=== PATIENT | male | born 1935 | race Caucasian/White ===

== ENCOUNTER 2017-01-29 21:44 | Inpatient (IN) | payer MEDICARE, BC ==
[~2017-01-29] VITALS: Ht 175.3 cm; Wt 99.7 kg
[~2017-01-29 21:44] MED LIST: ACTOS 15MG TAB15 MG PO; ACTOS 45MG45 MG/TAB PO; ASPIRIN 32325 MG/TAB PO; CLEOCIN HC150 MG/CAP PO; CLOPIDOGREL PO; COUMADIN 6MG6 MG/TAB PO; ECOTRIN325 MG PO; FLOMAX 0.40.4 MG/CAP PO; INSULIN 70/3100 U/ML SC; IPRATROPIUM BROM3 M1 IH; LASIX 40MG TABL40 MG PO; LASIX 80MG TABL80 MG PO; LEVAQUIN 5500 MG/TA1 PO; METOPROLOL SUCC25 MG PO; MUCINEX1200 MG PO; NEXIUM40 MG PO; NOVOLIN 70/30 710 ML SC; NOVOLIN R100 U/ML SQ; PRIL40 PO; PRILOSEC 20MG20 MG PO; REGLAN 10MG10 MG/TAB PO; SSKI1 GM/ML PO; TERAZOSIN HCL PO; TOPROL XL 25MG25 MG PO; TOPROL XL25 MG PO; ZITHROMAX 250M250 MG PO; ZYRTEC 10MG10 MG PO
[2017-01-29 22:19] LABS: BASO % 0.3 % (0.0-2.0); EOS % 0.5 % (0-4.0); GRAN # 4.6 (1.4-6.5); GRAN % 70.1 % (42.2-75.2); LYMPH # 1.2 (1.2-3.4); MEAN CELL VOLUME 93 fl (80.0-100.0); MEAN CORPUSCULAR HGB CONC 34 g/dl (33.0-37.0); MEAN PLATELET VOLUME 9.4 fl (7.4-10.4); MONO # 0.7 (0.1-0.6); MONO % 10.9 % (1.7-9.3); PLATELET COUNT 231 K/mm3 (130-400); RED BLOOD COUNT 3.59 M/mm3 (4.20-5.60); REDCELL DISTRIBUTION WIDTH-CV 14.1 % (11.5-14.5); WHITE BLOOD COUNT 6.6 K/mm3 (4.8-10.8)
[2017-01-29 22:34] LABS: ADJUSTED CALCIUM 8.8 mg/dL (8.4-10.2); ALBUMIN 3.7 gm/dL (3.5-5.0); BILIRUBIN,TOTAL 1.1 mg/dL (0.0-1.0); CALCIUM 8.6 mg/dL (8.4-10.2); MAGNESIUM 1.9 mg/dL (1.6-2.3); POTASSIUM 4.3 mmol/L (3.4-5.0); TOTAL PROTEIN 6.7 gm/dL (6.4-8.2)
[2017-01-29 22:36] LABS: HEMATOCRIT 33.3 % (42.0-52.0); HEMOGLOBIN 11.2 g/dl (13.5-18.0); MEAN CORPUSCULAR HEMOGLOBIN 31 pg (27.0-31.0)
[2017-01-29 22:38] LABS: INR 1.8 (0.8-3.0); PROTHROMBIN TIME 20.2 SECONDS (9.7-12.8)
[2017-01-29 22:42] LABS: PARTIAL THROMBOPLASTIN TIME 36.3 SECONDS (26.0-37.0)
[2017-01-29 22:49] LABS: TROPONIN-I 3.58 ng/mL (0.000-0.034)
[2017-01-30] VITALS (998 sets, daily range): BP systolic 102–143; BP diastolic 36–100; PULSE 61–78; TEMP 97.3–98.5; O2SAT 72–100
[2017-01-30] MEDS ORDERED: PREDNISONE10 MG PO (00:25)
[2017-01-30] MEDS ORDERED: ZITHROMAX500 M2 PO (00:25)
[2017-01-30] MEDS ORDERED: GLUCOPHAGE500 MG/TAB PO (08:08)
[2017-01-30 11:18] LABS: BASO % 0.4 % (0.0-2.0); EOS % 0.4 % (0-4.0); GRAN # 2.4 (1.4-6.5); GRAN % 48.5 % (42.2-75.2); LYMPH % 40.4 % (20.0-51.0); MEAN CELL VOLUME 93 fl (80.0-100.0); MEAN CORPUSCULAR HGB CONC 34 g/dl (33.0-37.0); MEAN PLATELET VOLUME 9.5 fl (7.4-10.4); MONO # 0.5 (0.1-0.6); MONO % 9.9 % (1.7-9.3); PLATELET COUNT 215 K/mm3 (130-400); RED BLOOD COUNT 3.48 M/mm3 (4.20-5.60); REDCELL DISTRIBUTION WIDTH-CV 14.2 % (11.5-14.5)
[2017-01-30 11:32] LABS: HEMATOCRIT 32.5 % (42.0-52.0); HEMOGLOBIN 10.9 g/dl (13.5-18.0); MEAN CORPUSCULAR HEMOGLOBIN 31 pg (27.0-31.0)
[2017-01-30 11:33] LABS: INR 1.8 (0.8-3.0)
[2017-01-30 11:36] LABS: ADJUSTED CALCIUM 9.2 mg/dL (8.4-10.2); ALBUMIN 3.4 gm/dL (3.5-5.0); CALCIUM 8.7 mg/dL (8.4-10.2); CREATININE, serum 0.96 mg/dL (0.66-1.25); PARTIAL THROMBOPLASTIN TIME 42.4 SECONDS (26.0-37.0); POTASSIUM 4.3 mmol/L (3.4-5.0); TOTAL PROTEIN 6.3 gm/dL (6.4-8.2)
[2017-01-30 11:56] LABS: TROPONIN-I 1.84 ng/mL (0.000-0.034)
[2017-01-31] VITALS (1018 sets, daily range): BP systolic 103–158; BP diastolic 37–95; PULSE 51–75; TEMP 97.5–98.2; O2SAT 83–100
[2017-01-31 06:16] LABS: ADD PATHOLOGY DIFF REVIEW NO
[2017-01-31 06:18] LABS: MEAN CELL VOLUME 91 fl (80.0-100.0); MEAN CORPUSCULAR HGB CONC 34 g/dl (33.0-37.0); PLATELET COUNT 231 K/mm3 (130-400); WHITE BLOOD COUNT 6.7 K/mm3 (4.8-10.8)
[2017-01-31 06:28] LABS: HEMATOCRIT 31.8 % (42.0-52.0); HEMOGLOBIN 10.7 g/dl (13.5-18.0); MEAN CORPUSCULAR HEMOGLOBIN 31 pg (27.0-31.0)
[2017-01-31 06:29] LABS: CALCIUM 8.6 mg/dL (8.4-10.2); CREATININE, serum 1.17 mg/dL (0.66-1.25); MAGNESIUM 1.9 mg/dL (1.6-2.3); POTASSIUM 3.9 mmol/L (3.4-5.0)
[2017-01-31 06:31] LABS: INR 1.8 (0.8-3.0); PROTHROMBIN TIME 20.5 SECONDS (9.7-12.8)
[2017-01-31 06:43] LABS: TROPONIN-I 1.39 ng/mL (0.000-0.034)
[2017-01-31 07:39] LABS: BAND 5 % (0-10); NEUTROPHILS 80 % (42.0-75.2); TOTAL CELLS COUNTED 100
[2017-01-31 07:45] LABS: PLATELET ESTIMATE NORMAL (NORMAL)
[2017-02-01] VITALS (692 sets, daily range): BP systolic 97–175; BP diastolic 43–102; PULSE 50–80; TEMP 97–98.2; O2SAT 70–100
[2017-02-01 05:51] LABS: INR 1.6 (0.8-3.0); PROTHROMBIN TIME 17.4 SECONDS (9.7-12.8)
[2017-02-01 05:59] LABS: CALCIUM 8.7 mg/dL (8.4-10.2); CREATININE, serum 1.81 mg/dL (0.66-1.25); POTASSIUM 4.6 mmol/L (3.4-5.0)
[2017-02-01 06:08] LABS: PARTIAL THROMBOPLASTIN TIME 103.4 SECONDS (26.0-37.0)
[2017-02-01 06:18] LABS: MEAN CELL VOLUME 91 fl (80.0-100.0); MEAN CORPUSCULAR HGB CONC 34 g/dl (33.0-37.0); MEAN PLATELET VOLUME 9.5 fl (7.4-10.4); PLATELET COUNT 239 K/mm3 (130-400); RED BLOOD COUNT 3.38 M/mm3 (4.20-5.60)
[2017-02-01 06:22] LABS: HEMATOCRIT 30.7 % (42.0-52.0); HEMOGLOBIN 10.3 g/dl (13.5-18.0); MEAN CORPUSCULAR HEMOGLOBIN 30 pg (27.0-31.0)
[2017-02-02] VITALS (710 sets, daily range): BP systolic 71–171; BP diastolic 37–86; PULSE 55–79; TEMP 97.3–98.7; O2SAT 89–100
[2017-02-02 05:08] LABS: GRAN # 7.5 (1.4-6.5); LYMPH # 0.9 (1.2-3.4); LYMPH % 10.1 % (20.0-51.0); MEAN CELL VOLUME 90 fl (80.0-100.0); MEAN CORPUSCULAR HGB CONC 34 g/dl (33.0-37.0); MONO # 0.6 (0.1-0.6); MONO % 6.3 % (1.7-9.3); PLATELET COUNT 186 K/mm3 (130-400); RED BLOOD COUNT 2.91 M/mm3 (4.20-5.60); REDCELL DISTRIBUTION WIDTH-CV 13.9 % (11.5-14.5)
[2017-02-02 05:16] LABS: CALCIUM 7.8 mg/dL (8.4-10.2); CREATININE, serum 2.14 mg/dL (0.66-1.25); POTASSIUM 4.2 mmol/L (3.4-5.0)
[2017-02-02 05:30] LABS: HEMATOCRIT 26.2 % (42.0-52.0); MEAN CORPUSCULAR HEMOGLOBIN 31 pg (27.0-31.0)
[2017-02-02 09:39] LABS: INR 1.8 (0.8-3.0); PROTHROMBIN TIME 19.9 SECONDS (9.7-12.8)
[2017-02-02 15:08] LABS: PH 5 (5-8); SQUAMOUS EPITHELIAL None Seen /hpf; URINE APPEARANCE Cloudy; URINE BACTERIA Many /hpf; URINE BILIRUBIN Negative (NEGATIVE); URINE BLOOD 3+ (NEGATIVE); URINE COLOR Amber; URINE GLUCOSE 1+ (NEGATIVE); URINE KETONE Negative (NEGATIVE); URINE RBC >50 /hpf; URINE UROBILINOGEN Negative (NEGATIVE); URINE WBC >50 /hpf
[2017-02-03 03:14] VITALS: BP 141/57; PULSE 67; TEMP 97.7
[2017-02-03 08:14] LABS: BASO % 0.1 % (0.0-2.0); GRAN # 10.4 (1.4-6.5); GRAN % 88.9 % (42.2-75.2); LYMPH % 8.4 % (20.0-51.0); MEAN CELL VOLUME 90 fl (80.0-100.0); MEAN CORPUSCULAR HGB CONC 35 g/dl (33.0-37.0); MEAN PLATELET VOLUME 9.3 fl (7.4-10.4); MONO # 0.2 (0.1-0.6); MONO % 1.6 % (1.7-9.3); PLATELET COUNT 264 K/mm3 (130-400); RED BLOOD COUNT 3.34 M/mm3 (4.20-5.60); REDCELL DISTRIBUTION WIDTH-CV 14.1 % (11.5-14.5); WHITE BLOOD COUNT 11.7 K/mm3 (4.8-10.8)
[2017-02-03 08:22] LABS: HEMATOCRIT 30.1 % (42.0-52.0); HEMOGLOBIN 10.4 g/dl (13.5-18.0); MEAN CORPUSCULAR HEMOGLOBIN 31 pg (27.0-31.0)
[2017-02-03 08:28] LABS: CALCIUM 8.4 mg/dL (8.4-10.2); POTASSIUM 4.8 mmol/L (3.4-5.0)
[2017-02-03 08:35] VITALS: BP 172/86; PULSE 78; TEMP 97.4
[2017-02-03 08:35] LABS: CREATININE, serum 3.45 mg/dL (0.66-1.25)
[2017-02-03 08:37] LABS: INR 2.3 (0.8-3.0); PROTHROMBIN TIME 25.6 SECONDS (9.7-12.8)
[2017-02-03 11:27] VITALS: BP 158/76; PULSE 74; TEMP 98.3
[2017-02-03 12:00] LABS: RETIC % 1.5 % (0.5-3.52)
[2017-02-03 15:40] VITALS: BP 144/60; PULSE 79
[2017-02-03 20:09] VITALS: BP 162/66; PULSE 76; TEMP 98.6
[2017-02-04] VITALS (7 sets, daily range): BP systolic 122–177; BP diastolic 60–75; PULSE 70–77; TEMP 97.5–98.7
[2017-02-04 08:01] LABS: CALCIUM 8.4 mg/dL (8.4-10.2)
[2017-02-04 08:19] LABS: BASO % 0.2 % (0.0-2.0); GRAN # 11.2 (1.4-6.5); GRAN % 87.2 % (42.2-75.2); LYMPH # 1.1 (1.2-3.4); LYMPH % 8.2 % (20.0-51.0); MEAN CELL VOLUME 89 fl (80.0-100.0); MEAN CORPUSCULAR HGB CONC 35 g/dl (33.0-37.0); MEAN PLATELET VOLUME 9.9 fl (7.4-10.4); MONO # 0.4 (0.1-0.6); PLATELET COUNT 241 K/mm3 (130-400); RED BLOOD COUNT 3.18 M/mm3 (4.20-5.60); REDCELL DISTRIBUTION WIDTH-CV 13.7 % (11.5-14.5); WHITE BLOOD COUNT 12.9 K/mm3 (4.8-10.8)
[2017-02-04 08:30] LABS: CREATININE, serum 4.11 mg/dL (0.66-1.25)
[2017-02-04 08:32] LABS: HEMATOCRIT 28.3 % (42.0-52.0); HEMOGLOBIN 9.9 g/dl (13.5-18.0); MEAN CORPUSCULAR HEMOGLOBIN 31 pg (27.0-31.0)
[2017-02-04 08:47] LABS: PROTHROMBIN TIME 37.6 SECONDS (9.7-12.8)
[2017-02-04 08:56] LABS: INR 3.3 (0.8-3.0)
[2017-02-04 23:16] LABS: INR 2.1 (0.8-3.0)
[2017-02-05 05:50] VITALS: BP 176/65; PULSE 65; TEMP 98.5
[2017-02-05 06:54] LABS: BASO % 0.1 % (0.0-2.0); GRAN # 8.5 (1.4-6.5); GRAN % 88.7 % (42.2-75.2); LYMPH # 0.6 (1.2-3.4); LYMPH % 6.6 % (20.0-51.0); MEAN CELL VOLUME 89 fl (80.0-100.0); MEAN CORPUSCULAR HGB CONC 35 g/dl (33.0-37.0); MEAN PLATELET VOLUME 9.5 fl (7.4-10.4); MONO # 0.3 (0.1-0.6); MONO % 3.1 % (1.7-9.3); PLATELET COUNT 220 K/mm3 (130-400); WHITE BLOOD COUNT 9.6 K/mm3 (4.8-10.8)
[2017-02-05 06:56] LABS: HEMATOCRIT 26.6 % (42.0-52.0); HEMOGLOBIN 9.2 g/dl (13.5-18.0); MEAN CORPUSCULAR HEMOGLOBIN 31 pg (27.0-31.0)
[2017-02-05 07:00] LABS: INR 1.7 (0.8-3.0); PROTHROMBIN TIME 19.4 SECONDS (9.7-12.8)
[2017-02-05 07:07] LABS: POTASSIUM 4.3 mmol/L (3.4-5.0)
[2017-02-05 07:33] LABS: CREATININE, serum 4.59 mg/dL (0.66-1.25)
[2017-02-05 09:40] VITALS: BP 156/51; PULSE 72; TEMP 98.4
[2017-02-05 12:36] VITALS: BP 130/47; PULSE 68; TEMP 97.6
[2017-02-05 16:55] VITALS: BP 177/75; PULSE 71; TEMP 98.5
[2017-02-05 19:27] VITALS: BP 172/95; PULSE 69; TEMP 98.1
[2017-02-05 23:02] VITALS: BP 151/90; PULSE 45; TEMP 98.5
[2017-02-06 02:51] VITALS: BP 168/79; PULSE 45; TEMP 98.8
[2017-02-06 08:51] VITALS: BP 128/88; PULSE 77; TEMP 97.6
[2017-02-06 09:26] LABS: BASO % 0.1 % (0.0-2.0); GRAN # 7.6 (1.4-6.5); GRAN % 85.2 % (42.2-75.2); LYMPH # 0.7 (1.2-3.4); LYMPH % 7.2 % (20.0-51.0); MEAN CELL VOLUME 89 fl (80.0-100.0); MEAN CORPUSCULAR HGB CONC 35 g/dl (33.0-37.0); MONO # 0.5 (0.1-0.6); MONO % 5.3 % (1.7-9.3); PLATELET COUNT 244 K/mm3 (130-400); RED BLOOD COUNT 3.21 M/mm3 (4.20-5.60); REDCELL DISTRIBUTION WIDTH-CV 14.1 % (11.5-14.5)
[2017-02-06 09:29] LABS: HEMATOCRIT 28.4 % (42.0-52.0); MEAN CORPUSCULAR HEMOGLOBIN 31 pg (27.0-31.0)
[2017-02-06 09:31] LABS: INR 1.4 (0.8-3.0); PROTHROMBIN TIME 15.9 SECONDS (9.7-12.8)
[2017-02-06 09:39] LABS: CALCIUM 8.1 mg/dL (8.4-10.2); POTASSIUM 4.2 mmol/L (3.4-5.0)
[2017-02-06 09:48] LABS: CREATININE, serum 4.33 mg/dL (0.66-1.25)
[2017-02-06 11:51] VITALS: BP 157/80; PULSE 66; TEMP 98.4
[2017-02-06 15:40] VITALS: BP 163/49; PULSE 38; TEMP 97.3
[2017-02-06 18:16] VITALS: PULSE 69
[2017-02-06 21:03] VITALS: BP 158/75; PULSE 69; TEMP 97.1
[2017-02-07 00:51] VITALS: BP 145/73; PULSE 66; TEMP 97.8
[2017-02-07 04:59] VITALS: BP 121/50; PULSE 64; TEMP 97.6
[2017-02-07 08:02] LABS: BASO % 0.1 % (0.0-2.0); GRAN # 5.6 (1.4-6.5); GRAN % 81.7 % (42.2-75.2); LYMPH # 0.6 (1.2-3.4); LYMPH % 8.2 % (20.0-51.0); MEAN CELL VOLUME 87 fl (80.0-100.0); MEAN CORPUSCULAR HGB CONC 35 g/dl (33.0-37.0); MEAN PLATELET VOLUME 10.1 fl (7.4-10.4); MONO # 0.5 (0.1-0.6); MONO % 7.2 % (1.7-9.3); PLATELET COUNT 218 K/mm3 (130-400); RED BLOOD COUNT 3.01 M/mm3 (4.20-5.60); REDCELL DISTRIBUTION WIDTH-CV 13.7 % (11.5-14.5); WHITE BLOOD COUNT 6.8 K/mm3 (4.8-10.8)
[2017-02-07 08:05] LABS: HEMATOCRIT 26.2 % (42.0-52.0); HEMOGLOBIN 9.1 g/dl (13.5-18.0); MEAN CORPUSCULAR HEMOGLOBIN 30 pg (27.0-31.0)
[2017-02-07 08:13] LABS: CALCIUM 7.9 mg/dL (8.4-10.2); CREATININE, serum 3.69 mg/dL (0.66-1.25)
[2017-02-07 08:22] LABS: INR 1.4 (0.8-3.0); PROTHROMBIN TIME 16.2 SECONDS (9.7-12.8)
[2017-02-07 08:49] VITALS: BP 135/46; PULSE 63; TEMP 97.7
[2017-02-07 11:30] VITALS: BP 150/70; PULSE 67; TEMP 97.5
[2017-02-07 21:27] VITALS: BP 162/67; PULSE 74; TEMP 98.6
[2017-02-08 00:15] VITALS: BP 191/88; PULSE 69; TEMP 97.9
[2017-02-08 01:23] LABS: CALCIUM 8.1 mg/dL (8.4-10.2); CREATININE, serum 2.7 mg/dL (0.66-1.25); POTASSIUM 3.7 mmol/L (3.4-5.0)
[2017-02-08 04:38] VITALS: BP 141/50; PULSE 98; TEMP 98.6
[2017-02-08 07:45] VITALS: BP 146/57; PULSE 64; TEMP 97.5
[2017-02-08 08:19] LABS: MEAN CELL VOLUME 88 fl (80.0-100.0); MEAN CORPUSCULAR HGB CONC 35 g/dl (33.0-37.0); MEAN PLATELET VOLUME 10.2 fl (7.4-10.4); PLATELET COUNT 264 K/mm3 (130-400); RED BLOOD COUNT 3.26 M/mm3 (4.20-5.60); REDCELL DISTRIBUTION WIDTH-CV 13.8 % (11.5-14.5); WHITE BLOOD COUNT 10.9 K/mm3 (4.8-10.8)
[2017-02-08 08:36] LABS: CALCIUM 8.1 mg/dL (8.4-10.2); CREATININE, serum 2.26 mg/dL (0.66-1.25); POTASSIUM 3.5 mmol/L (3.4-5.0)
[2017-02-08 08:56] LABS: HEMATOCRIT 28.7 % (42.0-52.0); HEMOGLOBIN 10.1 g/dl (13.5-18.0); MEAN CORPUSCULAR HEMOGLOBIN 31 pg (27.0-31.0)
[2017-02-08 08:57] LABS: ADD PATHOLOGY DIFF REVIEW NO
[2017-02-08 09:38] LABS: INR 1.7 (0.8-3.0); PROTHROMBIN TIME 19.1 SECONDS (9.7-12.8)
[2017-02-08 11:24] VITALS: BP 107/47; PULSE 62; TEMP 98.3
[2017-02-08 13:31] LABS: BAND 2 % (0-10); NEUTROPHILS 70 % (42.0-75.2); TOTAL CELLS COUNTED 100
[2017-02-08 13:32] LABS: PLATELET ESTIMATE NORMAL (NORMAL)
[2017-02-08 15:56] VITALS: BP 120/50; PULSE 68; TEMP 98.3
[2017-02-08 21:14] VITALS: BP 120/50; PULSE 65; TEMP 98.7
[2017-02-09] VITALS (305 sets, daily range): BP systolic 98–161; BP diastolic 47–99; PULSE 54–74; TEMP 97.2–98.7; O2SAT 76–100
[2017-02-09 07:56] LABS: MEAN CELL VOLUME 90 fl (80.0-100.0); MEAN CORPUSCULAR HGB CONC 34 g/dl (33.0-37.0); MEAN PLATELET VOLUME 10.2 fl (7.4-10.4); PLATELET COUNT 252 K/mm3 (130-400); RED BLOOD COUNT 3.32 M/mm3 (4.20-5.60); REDCELL DISTRIBUTION WIDTH-CV 14.2 % (11.5-14.5); WHITE BLOOD COUNT 13.5 K/mm3 (4.8-10.8)
[2017-02-09 08:06] LABS: INR 1.8 (0.8-3.0); PROTHROMBIN TIME 20.8 SECONDS (9.7-12.8)
[2017-02-09 08:12] LABS: CALCIUM 8.4 mg/dL (8.4-10.2); CREATININE, serum 1.54 mg/dL (0.66-1.25); POTASSIUM 3.6 mmol/L (3.4-5.0)
[2017-02-09 08:13] LABS: HEMOGLOBIN 10.1 g/dl (13.5-18.0); MEAN CORPUSCULAR HEMOGLOBIN 30 pg (27.0-31.0)
[2017-02-09 08:14] LABS: ADD PATHOLOGY DIFF REVIEW NO; HEMATOCRIT 29.9 % (42.0-52.0)
[2017-02-09 12:07] LABS: ANISOCYTOSIS 1+; BAND 1 % (0-10); BURR CELLS 1+; HELMET CELLS 1+; PLATELET ESTIMATE NORMAL (NORMAL); POIKILOCYTOSIS 1+; POLYCHROMASIA 1+
[2017-02-09 12:08] LABS: NEUTROPHILS 78 % (42.0-75.2)
[2017-02-09 12:09] LABS: TOTAL CELLS COUNTED 100
[2017-02-09 12:52] LABS: PROTHROMBIN TIME 23.1 SECONDS (9.7-12.8)
[2017-02-09 17:42] LABS: MAGNESIUM 1.6 mg/dL (1.6-2.3)
[2017-02-10] VITALS (645 sets, daily range): BP systolic 96–159; BP diastolic 46–67; PULSE 53–70; TEMP 97–98.6; O2SAT 64–100
[2017-02-10 05:45] LABS: BASO % 0.1 % (0.0-2.0); EOS % 0.3 % (0-4.0); GRAN % 74.9 % (42.2-75.2); LYMPH # 1.5 (1.2-3.4); LYMPH % 12.8 % (20.0-51.0); MEAN CELL VOLUME 92 fl (80.0-100.0); MEAN CORPUSCULAR HGB CONC 34 g/dl (33.0-37.0); MONO # 1.3 (0.1-0.6); MONO % 10.4 % (1.7-9.3); PLATELET COUNT 187 K/mm3 (130-400); RED BLOOD COUNT 2.67 M/mm3 (4.20-5.60); REDCELL DISTRIBUTION WIDTH-CV 14.6 % (11.5-14.5)
[2017-02-10 05:57] LABS: ADJUSTED CALCIUM 9.3 mg/dL (8.4-10.2); ALBUMIN 2.5 gm/dL (3.5-5.0); BILIRUBIN,TOTAL 0.7 mg/dL (0.0-1.0); CALCIUM 8.1 mg/dL (8.4-10.2); CREATININE, serum 1.37 mg/dL (0.66-1.25); MAGNESIUM 1.5 mg/dL (1.6-2.3); POTASSIUM 3.8 mmol/L (3.4-5.0); TOTAL PROTEIN 4.8 gm/dL (6.4-8.2)
[2017-02-10 05:58] LABS: HEMATOCRIT 24.5 % (42.0-52.0); HEMOGLOBIN 8.2 g/dl (13.5-18.0); MEAN CORPUSCULAR HEMOGLOBIN 31 pg (27.0-31.0)
[2017-02-10 06:03] LABS: INR 2.2 (0.8-3.0); PROTHROMBIN TIME 25.4 SECONDS (9.7-12.8)
[2017-02-10 10:53] LABS: RETIC % 1.7 % (0.5-3.52)
[2017-02-10 10:55] LABS: LACTATE DEHYDROGENASE 909 U/L (313-618)
[2017-02-10 15:42] LABS: HEMATOCRIT 26.4 % (42.0-52.0); HEMOGLOBIN 8.8 g/dl (13.5-18.0)
[2017-02-10 15:49] LABS: INR 2.5 (0.8-3.0); PROTHROMBIN TIME 28.9 SECONDS (9.7-12.8)
[2017-02-11 04:38] VITALS: BP 143/58; PULSE 74; TEMP 97.2
[2017-02-11 08:24] LABS: ADJUSTED CALCIUM 9.5 mg/dL (8.4-10.2); ALBUMIN 2.8 gm/dL (3.5-5.0); BILIRUBIN,TOTAL 0.9 mg/dL (0.0-1.0); CALCIUM 8.5 mg/dL (8.4-10.2); CREATININE, serum 1.18 mg/dL (0.66-1.25); MAGNESIUM 1.6 mg/dL (1.6-2.3); POTASSIUM 3.3 mmol/L (3.4-5.0); TOTAL PROTEIN 5.3 gm/dL (6.4-8.2)
[2017-02-11 08:27] LABS: INR 2.5 (0.8-3.0); PROTHROMBIN TIME 28.7 SECONDS (9.7-12.8)
[2017-02-11 09:18] VITALS: BP 127/58; PULSE 56; TEMP 97.5
[2017-02-11 11:45] VITALS: BP 135/78; PULSE 65; TEMP 98.4
[2017-02-11 12:33] VITALS: BP 140/46; PULSE 55; TEMP 96.8
[2017-02-11 16:18] VITALS: BP 124/40; PULSE 49; TEMP 97.9
[2017-02-12] VITALS: BP 136/70; PULSE 70; TEMP 98.6
[2017-02-12 04:08] VITALS: BP 135/47; PULSE 50; TEMP 98.5
[2017-02-12 07:28] LABS: INR 2.9 (0.8-3.0); PROTHROMBIN TIME 33.1 SECONDS (9.7-12.8)
[2017-02-12 07:58] LABS: ADJUSTED CALCIUM 9.7 mg/dL (8.4-10.2); ALBUMIN 2.9 gm/dL (3.5-5.0); BILIRUBIN,TOTAL 0.9 mg/dL (0.0-1.0); CALCIUM 8.8 mg/dL (8.4-10.2); CREATININE, serum 1.19 mg/dL (0.66-1.25); MAGNESIUM 1.6 mg/dL (1.6-2.3); POTASSIUM 3.7 mmol/L (3.4-5.0); TOTAL PROTEIN 5.3 gm/dL (6.4-8.2)
[2017-02-12 08:48] VITALS: BP 130/37; PULSE 50; TEMP 98.9
[2017-02-12 12:13] VITALS: BP 147/48; PULSE 56
[2017-02-12 15:26] VITALS: BP 126/70; PULSE 58; TEMP 98.8
[2017-02-12 21:17] VITALS: BP 135/40; PULSE 58; TEMP 98.2
[2017-02-13 01:12] VITALS: BP 143/48; PULSE 50; TEMP 98.6
[2017-02-13 05:13] VITALS: BP 134/50; PULSE 52; TEMP 98.2
[2017-02-13 07:23] LABS: ADJUSTED CALCIUM 9.4 mg/dL (8.4-10.2); ALBUMIN 2.7 gm/dL (3.5-5.0); BILIRUBIN,TOTAL 0.9 mg/dL (0.0-1.0); CALCIUM 8.4 mg/dL (8.4-10.2); CREATININE, serum 1.23 mg/dL (0.66-1.25); MAGNESIUM 1.5 mg/dL (1.6-2.3); POTASSIUM 4.4 mmol/L (3.4-5.0); TOTAL PROTEIN 5.2 gm/dL (6.4-8.2)
[2017-02-13 07:46] LABS: INR 3.4 (0.8-3.0); PROTHROMBIN TIME 39.2 SECONDS (9.7-12.8)
[2017-02-13 08:06] VITALS: BP 111/50; PULSE 58
[2017-02-13 11:42] VITALS: BP 150/46; PULSE 52; TEMP 98
[2017-02-13 16:25] VITALS: BP 122/80; PULSE 61; TEMP 98.1
[2017-02-13 19:27] LABS: MEAN CELL VOLUME 96 fl (80.0-100.0); MEAN CORPUSCULAR HGB CONC 32 g/dl (33.0-37.0); MEAN PLATELET VOLUME 10.7 fl (7.4-10.4); PLATELET COUNT 177 K/mm3 (130-400); RED BLOOD COUNT 2.41 M/mm3 (4.20-5.60); REDCELL DISTRIBUTION WIDTH-CV 14.9 % (11.5-14.5); WHITE BLOOD COUNT 11.3 K/mm3 (4.8-10.8)
[2017-02-13 19:33] LABS: HEMATOCRIT 23.2 % (42.0-52.0); HEMOGLOBIN 7.4 g/dl (13.5-18.0); MEAN CORPUSCULAR HEMOGLOBIN 31 pg (27.0-31.0)
[2017-02-13 19:51] LABS: MEAN CELL VOLUME 92 fl (80.0-100.0); MEAN CORPUSCULAR HGB CONC 34 g/dl (33.0-37.0); PLATELET COUNT 172 K/mm3 (130-400); REDCELL DISTRIBUTION WIDTH-CV 14.5 % (11.5-14.5); WHITE BLOOD COUNT 9.9 K/mm3 (4.8-10.8)
[2017-02-13 19:53] LABS: ARTERIAL BLD GAS O2 SATURATION 96.6 % (92-100); ARTERIAL BLD GAS TCO2 CT 24.3; ARTERIAL BLOOD GAS BASE EXCESS 4.1 (-2-2); ARTERIAL BLOOD GAS HCO3 23.7 meq/L (22-26); OXYHEMOGLOBIN 95.8 %
[2017-02-13 19:53] LABS: HEMATOCRIT 23.9 % (42.0-52.0); MEAN CORPUSCULAR HEMOGLOBIN 31 pg (27.0-31.0)
[2017-02-13 19:56] LABS: ALLEN TEST YES; ALLENS TEST RESULT PASS; ARTERIAL BLOOD GAS PHT 7.67 C (7.35-7.45); ARTERIAL BLOOD GAS pH 7.67 (7.35-7.45); ATS? YES
[2017-02-13 20:05] VITALS: BP 145/46; PULSE 55; TEMP 97.9
[2017-02-14] VITALS (13 sets, daily range): BP systolic 101–186; BP diastolic 37–76; PULSE 51–67; TEMP 97.4–99.3
[2017-02-14 08:04] LABS: ADJUSTED CALCIUM 9.3 mg/dL (8.4-10.2); ALBUMIN 2.8 gm/dL (3.5-5.0); BILIRUBIN,TOTAL 1.2 mg/dL (0.0-1.0); CALCIUM 8.3 mg/dL (8.4-10.2); CREATININE, serum 1.26 mg/dL (0.66-1.25); MAGNESIUM 1.6 mg/dL (1.6-2.3); POTASSIUM 3.9 mmol/L (3.4-5.0); TOTAL PROTEIN 5.3 gm/dL (6.4-8.2)
[2017-02-14 09:20] LABS: HEMATOCRIT 22.2 % (42.0-52.0); HEMOGLOBIN 7.4 g/dl (13.5-18.0)
[2017-02-14 09:31] LABS: PROTHROMBIN TIME 34.2 SECONDS (9.7-12.8)
[2017-02-14 13:45] LABS: ALBUMIN FRACTION 2.8 g/dL (2.6-4.5); ALBUMIN PERCENTAGE 56.3 % (48.7-61.8); ALPHA 1 FRACTION 0.4 g/dL (0.3-0.5); ALPHA 1 PERCENTAGE 8.3 % (3.4-8.3); ALPHA 2 FRACTION 0.6 g/dL (0.6-1.2); ALPHA 2 PERCENTAGE 11.4 % (8.4-17.5); BETA 1 FRACTION 0.3 g/dL (0.4-0.6); BETA 1 PERCENTAGE 6.2 % (5.4-8.9); BETA 2 FRACTION 0.3 g/dL (0.2-0.5); BETA 2 PERCENTAGE 6.5 % (3.8-7.7); GAMMA FRACTION 0.6 g/dL (0.4-1.7); GAMMA PERCENTAGE 11.3 % (8.1-23.0); SERUM PROTEIN TOTAL 4.9 g/dL (6.0-7.6)
[2017-02-14 13:49] LABS: HEMATOCRIT 23.7 % (42.0-52.0); HEMOGLOBIN 7.8 g/dl (13.5-18.0)
[2017-02-14 18:44] LABS: ADD PATHOLOGY DIFF REVIEW NO
[2017-02-14 19:08] LABS: MEAN CELL VOLUME 90 fl (80.0-100.0); MEAN CORPUSCULAR HGB CONC 35 g/dl (33.0-37.0); MEAN PLATELET VOLUME 10.1 fl (7.4-10.4); PLATELET COUNT 185 K/mm3 (130-400); RED BLOOD COUNT 3.16 M/mm3 (4.20-5.60); REDCELL DISTRIBUTION WIDTH-CV 14.5 % (11.5-14.5); WHITE BLOOD COUNT 10.1 K/mm3 (4.8-10.8)
[2017-02-14 19:11] LABS: CALCIUM 8.7 mg/dL (8.4-10.2); CREATININE, serum 1.2 mg/dL (0.66-1.25); POTASSIUM 3.7 mmol/L (3.4-5.0)
[2017-02-14 19:12] LABS: HEMATOCRIT 28.4 % (42.0-52.0); HEMOGLOBIN 9.8 g/dl (13.5-18.0); MEAN CORPUSCULAR HEMOGLOBIN 31 pg (27.0-31.0)
[2017-02-14 19:20] LABS: EOSINOPHIL 1 % (0-4); NEUTROPHILS 76 % (42.0-75.2); TOTAL CELLS COUNTED 100
[2017-02-14 19:23] LABS: ANISOCYTOSIS 1+; BURR CELLS 1+; HYPOCHROMIA 1+; MICROCYTOSIS 1+; POLYCHROMASIA 1+; SCHISTOCYTES 1+
[2017-02-14 20:31] LABS: PH 9 (5-8); SQUAMOUS EPITHELIAL 0-2 /hpf; URINE APPEARANCE Clear; URINE BACTERIA None Seen /hpf; URINE BILIRUBIN Negative (NEGATIVE); URINE BLOOD 1+ (NEGATIVE); URINE COLOR Yellow; URINE GLUCOSE Negative (NEGATIVE); URINE KETONE Negative (NEGATIVE); URINE UROBILINOGEN Negative (NEGATIVE)
[2017-02-14 21:40] LABS: HOURS 24 Hr (()); VOLUME 1200 mL (())
[2017-02-15] VITALS (7 sets, daily range): BP systolic 102–135; BP diastolic 27–57; PULSE 50–64; TEMP 97–99
[2017-02-15 09:09] LABS: INR 2.3 (0.8-3.0)
[2017-02-15 15:32] LABS: TOTAL IRON BINDING CAPACITY 236 ug/dL (261-462)
[2017-02-15] MEDS ORDERED: IPRATROPIUM BROM3 M1 IH (16:40)
[2017-02-15] MEDS ORDERED: COUMADIN 3MG3 MG/TAB PO (16:41)
[2017-02-15] MEDS ORDERED: INCRUSE EL62.5 MCG/A IH (16:43)
[2017-02-15] MEDS ORDERED: LEVSIN0.125 M1 SL (16:43)
[2017-02-15] MEDS ORDERED: ASPIRIN E.C. 8181 MG PO (16:44)
[2017-02-15] MEDS ORDERED: ZEBETA 5MG5 MG PO (16:44)
[2017-02-15] MEDS ORDERED: PLAVIX 75MG TAB75 MG PO (16:44)
[2017-02-15] MEDS ORDERED: LIPITOR 40MG TA40 MG PO (16:44)
[2017-02-15] MEDS ORDERED: LASIX 20MG TABL20 MG PO (16:45)
[2017-02-15] MEDS ORDERED: MUCINEX 60600 MG/TA1 PO (16:45)
[2017-02-15] MEDS ORDERED: DULCOLAX TAB5 MG PO (16:46)
[2017-02-15] MEDS ORDERED: IMODIUMSUSP PO (16:46)
[2017-02-15] MEDS ORDERED: LEADER CLEARLAX PO (16:47)
[2017-02-15] MEDS ORDERED: POTASSIUM IODID PO (16:48)
[2017-02-16 04:09] VITALS: BP 90/46; PULSE 43; TEMP 97.5
[2017-02-16 07:44] VITALS: BP 127/37; PULSE 97; TEMP 96
[2017-02-16 07:45] LABS: INR 2.4 (0.8-3.0); PROTHROMBIN TIME 27.6 SECONDS (9.7-12.8)
[2017-02-16 11:19] VITALS: BP 139/52; PULSE 49; TEMP 98.2
[2017-02-16] MEDS ORDERED: COUMADIN4 MG PO (11:29)
[2017-02-16] MEDS ORDERED: PREDNISONE 5MG5 MG PO (11:30)
[2017-02-16] MEDS ORDERED: LEVEMIR FLEX100 U/ML SQ (11:30)
[2017-02-16 11:54] VITALS: BP 139/52; PULSE 49; TEMP 98.2
[2017-02-16 12:03] VITALS: BP 139/52; PULSE 49; TEMP 98.2
[2017-02-16 12:53] LABS: URINE ALPHA 1 % 10.7 % (()); URINE ALPHA 2 % 5.9 % (()); URINE BETA % 9.3 % (()); URINE GAMMA % 6.6 % (())
== END 2017-02-16 14:53 | DRG 248 ==
LOC: COL.ER 21:44 → IMCU 01-30 00:28 → MEDICAL 02-02 15:45 → ICU 02-09 17:23 → MEDICAL 02-10 18:52
PROVIDERS: Emergency Medicine; Family Medicine; Internal Medicine; Internal Medicine Cardiovascular Disease; Internal Medicine Nephrology; Internal Medicine Pulmonary Disease
PROC: B2111ZZ Fluoroscopy of Multiple Coronary Arteries using Low Osmolar Contrast (ICD-10-PCS; 2017-02-01)
PROC: 4A033BC Measurement of Arterial Pressure, Coronary, Percutaneous Approach (ICD-10-PCS; 2017-02-01)
PROC: 0B968ZX Drainage of Right Lower Lobe Bronchus, Via Natural or Artificial Opening Endoscopic, Diagnostic (ICD-10-PCS; 2017-02-01)
PROC: 0B9B8ZX Drainage of Left Lower Lobe Bronchus, Via Natural or Artificial Opening Endoscopic, Diagnostic (ICD-10-PCS; 2017-02-01)
PROC: 02713EZ Dilation of Coronary Artery, Two Arteries with Two Intraluminal Devices, Percutaneous Approach (ICD-10-PCS; principal; 2017-02-01 08:30)
PROC: 0TJB8ZZ Inspection of Bladder, Via Natural or Artificial Opening Endoscopic (ICD-10-PCS; 2017-02-13)
DX: I21.4 Non-ST elevation (NSTEMI) myocardial infarction (principal); I50.23 Acute on chronic systolic (congestive) heart failure; J18.9 Pneumonia, unspecified organism; I13.0 Hypertensive heart and chronic kidney disease with heart failure and stage 1 through stage 4 chronic kidney disease, or unspecified chronic kidney disease; R04.2 Hemoptysis; N17.9 Acute kidney failure, unspecified; E87.1 Hypo-osmolality and hyponatremia; N39.0 Urinary tract infection, site not specified; J44.1 Chronic obstructive pulmonary disease with (acute) exacerbation; I47.2 Ventricular tachycardia; E11.22 Type 2 diabetes mellitus with diabetic chronic kidney disease; N18.2 Chronic kidney disease, stage 2 (mild); E11.42 Type 2 diabetes mellitus with diabetic polyneuropathy; I25.10 Atherosclerotic heart disease of native coronary artery without angina pectoris; Z95.2 Presence of prosthetic heart valve; Z79.01 Long term (current) use of anticoagulants; Z86.711 Personal history of pulmonary embolism; E83.51 Hypocalcemia; N14.1 Nephropathy induced by other drugs, medicaments and biological substances; T50.8X5A Adverse effect of diagnostic agents, initial encounter; B96.5 Pseudomonas (aeruginosa) (mallei) (pseudomallei) as the cause of diseases classified elsewhere; D64.9 Anemia, unspecified; I70.1 Atherosclerosis of renal artery; N40.1 Benign prostatic hyperplasia with lower urinary tract symptoms; R33.8 Other retention of urine; K58.0 Irritable bowel syndrome with diarrhea
CPT/HCPCS: 99223-AI; 99232-AI; 99233-AI; 99239; A4315; A9270-GY; A9284; A9502; C1751; C1760; C1769; C1876; C1887; C1894; J0153; J0282; J0692; J0696; J0881; J1644; J1815; J1940; J2250; J2270; J2405; J2704; J2785; J2916; J2920; J3010; J3430; J3475; J3480; J7030; J7040; J7060; J7512; P9016; Q9967

== ENCOUNTER → 2017-03-16 | Outpatient (REF) ==
[~2017-03-16] MED LIST changes: +ALUMINUM & MAG355 ML PO; +AMBIEN 10MG10 MG PO; +ANTI-DIARRHEAL2 MG PO; +ASPIRIN E.C. 8181 MG PO; +CORRECTIVE LAXAT5 MG PO; +COUMADIN 3MG3 MG/TAB PO; +COUMADIN 5MG5 MG/TAB PO; +COUMADIN4 MG PO; +DULCOLAX S10 MG/SUPP RC; +DULCOLAX TAB5 MG PO; +FERROUS GL325 MG/TAB PO; +GLUCERNA 1.2 C240 ML PO; +GLUCOPHAGE500 MG/TAB PO; +IMODIUMSUSP PO; +INCRUSE EL62.5 MCG/A; +INCRUSE EL62.5 MCG/A IH; +LANTUS SOLOS100 U/ML SQ; +LASIX 20MG TABL20 MG PO; +LEADER CLEARLAX PO; +LEVEMIR FLEX100 U/ML SQ; +LEVSIN0.125 M1 SL; +LIPITOR 40MG TA40 MG PO; +MILK OF MA400 MG/52 PO; +MIRALAX PA17 GM/Dose PO; +MOTRIN 400400 MG/TAB PO; +MUCINEX 60600 MG/TA1 PO; +MYCOSTATIN100000 U/G TP; +NORCO 325 MG-51 TAB PO; +PLAVIX 75MG TAB75 MG PO; +POTASSIUM IODID PO; +PREDNISONE 5MG5 MG PO; +PREDNISONE10 MG PO; +PROTONIX 40MG T40 MG PO; +TESSALON P100 MG/CAP PO; +TYLENOL 325MG325 MG PO; +ZEBETA 5MG5 MG PO; +ZITHROMAX500 M2 PO; +[UNRECOGNIZED DRUG - SUPPLY] TP
== END ==
LOC: ZAIV 06:20
DX: Z01.89 Encounter for other specified special examinations (principal)

== ENCOUNTER → 2017-04-27 | Outpatient (CLI) | payer MEDICARE, BC | LOC: WCC 10:51 | DX: E11.621 Type 2 diabetes mellitus with foot ulcer (principal); L97.419 Non-pressure chronic ulcer of right heel and midfoot with unspecified severity | CPT/HCPCS: 13919; 17717; 27510; 27517; A6197; A6207; A6212; G0463 ==

== ENCOUNTER 2017-05-01 09:48 | Inpatient (IN) | payer MEDICARE, BC ==
[~2017-05-01] VITALS: Ht 175.3 cm; Wt 96.6 kg
[2017-05-01] VITALS (554 sets, daily range): BP systolic 132–158; BP diastolic 62–87; PULSE 70–89; TEMP 98–102; O2SAT 63–100
[~2017-05-01 09:48] MED LIST changes: -ALUMINUM & MAG355 ML PO; -AMBIEN 10MG10 MG PO; -ANTI-DIARRHEAL2 MG PO; -CORRECTIVE LAXAT5 MG PO; -COUMADIN 5MG5 MG/TAB PO; -DULCOLAX S10 MG/SUPP RC; -FERROUS GL325 MG/TAB PO; -GLUCERNA 1.2 C240 ML PO; -INCRUSE EL62.5 MCG/A; -LANTUS SOLOS100 U/ML SQ; -MILK OF MA400 MG/52 PO; -MIRALAX PA17 GM/Dose PO; -MOTRIN 400400 MG/TAB PO; -MYCOSTATIN100000 U/G TP; -NORCO 325 MG-51 TAB PO; -PROTONIX 40MG T40 MG PO; -TESSALON P100 MG/CAP PO; -TYLENOL 325MG325 MG PO; -[UNRECOGNIZED DRUG - SUPPLY] TP
[2017-05-01 10:29] LABS: MEAN CELL VOLUME 89 fl (80.0-100.0); MEAN CORPUSCULAR HGB CONC 34 g/dl (33.0-37.0); MEAN PLATELET VOLUME 9.5 fl (7.4-10.4); PLATELET COUNT 174 K/mm3 (130-400); RED BLOOD COUNT 3.49 M/mm3 (4.20-5.60); REDCELL DISTRIBUTION WIDTH-CV 17.1 % (11.5-14.5)
[2017-05-01 10:31] LABS: ADD PATHOLOGY DIFF REVIEW NO; HEMATOCRIT 31.2 % (42.0-52.0); HEMOGLOBIN 10.5 g/dl (13.5-18.0); MEAN CORPUSCULAR HEMOGLOBIN 30 pg (27.0-31.0)
[2017-05-01 10:32] LABS: INR 3.6 (0.8-3.0); PROTHROMBIN TIME 42.6 SECONDS (9.7-12.8)
[2017-05-01 10:39] LABS: ALBUMIN 2.6 gm/dL (3.5-5.0); BILIRUBIN,TOTAL 1.1 mg/dL (0.0-1.0); CALCIUM 7.9 mg/dL (8.4-10.2); CREATININE, serum 1.16 mg/dL (0.66-1.25); POTASSIUM 4.1 mmol/L (3.4-5.0); TOTAL PROTEIN 5.4 gm/dL (6.4-8.2)
[2017-05-01] MEDS ORDERED: LANTUS SOLOS100 U/ML SQ (10:41)
[2017-05-01] MEDS ORDERED: LASIX 80MG TABL80 MG PO (10:42)
[2017-05-01] MEDS ORDERED: ZEBETA 5MG5 MG PO (10:44)
[2017-05-01] MEDS ORDERED: ASPIRIN 32325 MG/TAB PO (10:47)
[2017-05-01 10:48] LABS: BAND 29 % (0-10); BURR CELLS 1+; NEUTROPHILS 65 % (42.0-75.2); TOTAL CELLS COUNTED 100
[2017-05-01 10:49] LABS: PLATELET ESTIMATE NORMAL (NORMAL)
[2017-05-01 10:53] LABS: TROPONIN-I 0.527 ng/mL (0.000-0.034)
[2017-05-01] MEDS ORDERED: NORCO 325 MG-51 TAB PO (11:17)
[2017-05-01] MEDS ORDERED: MUCINEX 60600 MG/TA1 PO (11:18)
[2017-05-01] MEDS ORDERED: FERROUS GL325 MG/TAB PO (11:19)
[2017-05-01] MEDS ORDERED: TYLENOL 325MG325 MG PO ×2 (11:19→15:00)
[2017-05-01] MEDS ORDERED: PROTONIX 40MG T40 MG PO (11:20)
[2017-05-01] MEDS ORDERED: FLOMAX 0.40.4 MG/CAP PO (11:38)
[2017-05-01] MEDS ORDERED: INCRUSE EL62.5 MCG/A (11:39)
[2017-05-01] MEDS ORDERED: COUMADIN 5MG5 MG/TAB PO (11:39)
[2017-05-01] MEDS ORDERED: COUMADIN4 MG PO (11:40)
[2017-05-01] MEDS ORDERED: AMBIEN 10MG10 MG PO (11:41)
[2017-05-01] MEDS ORDERED: MYCOSTATIN100000 U/G TP (11:41)
[2017-05-01] MEDS ORDERED: GLUCERNA 1.2 C240 ML PO (11:42)
[2017-05-01] MEDS ORDERED: MOTRIN 400400 MG/TAB PO (11:42)
[2017-05-01] MEDS ORDERED: MILK OF MA400 MG/52 PO (14:11)
[2017-05-01] MEDS ORDERED: ALUMINUM & MAG355 ML PO (14:12)
[2017-05-01] MEDS ORDERED: DULCOLAX S10 MG/SUPP RC (14:13)
[2017-05-01] MEDS ORDERED: ANTI-DIARRHEAL2 MG PO (14:16)
[2017-05-01] MEDS ORDERED: LIPITOR 40MG TA40 MG PO (14:19)
[2017-05-01] MEDS ORDERED: CORRECTIVE LAXAT5 MG PO (14:20)
[2017-05-01] MEDS ORDERED: MIRALAX PA17 GM/Dose PO (14:31)
[2017-05-01] MEDS ORDERED: INCRUSE EL62.5 MCG/A IH (14:32)
[2017-05-01] MEDS ORDERED: TESSALON P100 MG/CAP PO (14:58)
[2017-05-01] MEDS ORDERED: [UNRECOGNIZED DRUG - SUPPLY] TP (15:02)
[2017-05-01 15:37] LABS: PH 6 (5-8); SQUAMOUS EPITHELIAL None Seen /hpf; URINE APPEARANCE Turbid; URINE BACTERIA Rare /hpf; URINE BILIRUBIN Negative (NEGATIVE); URINE BLOOD 1+ (NEGATIVE); URINE COLOR Amber; URINE GLUCOSE Negative (NEGATIVE); URINE KETONE Negative (NEGATIVE); URINE UROBILINOGEN Negative (NEGATIVE)
[2017-05-01 15:38] LABS: URINE WBC >50 /hpf
[2017-05-02] VITALS (736 sets, daily range): BP systolic 105–173; BP diastolic 43–55; PULSE 71–80; TEMP 97.5–100.1; O2SAT 83–100
[2017-05-02 05:41] LABS: ADD PATHOLOGY DIFF REVIEW NO
[2017-05-02 05:55] LABS: CALCIUM 7.4 mg/dL (8.4-10.2); CREATININE, serum 0.94 mg/dL (0.66-1.25); MAGNESIUM 1.5 mg/dL (1.6-2.3); MEAN CELL VOLUME 89 fl (80.0-100.0); MEAN CORPUSCULAR HGB CONC 34 g/dl (33.0-37.0); MEAN PLATELET VOLUME 9.4 fl (7.4-10.4); PLATELET COUNT 148 K/mm3 (130-400); POTASSIUM 4.2 mmol/L (3.4-5.0); RED BLOOD COUNT 3.02 M/mm3 (4.20-5.60); REDCELL DISTRIBUTION WIDTH-CV 17.4 % (11.5-14.5); WHITE BLOOD COUNT 12.4 K/mm3 (4.8-10.8)
[2017-05-02 06:00] LABS: HEMATOCRIT 26.9 % (42.0-52.0); HEMOGLOBIN 9.1 g/dl (13.5-18.0); MEAN CORPUSCULAR HEMOGLOBIN 30 pg (27.0-31.0)
[2017-05-02 06:14] LABS: TROPONIN-I 0.806 ng/mL (0.000-0.034)
[2017-05-02 06:29] LABS: BAND 27 % (0-10); INR 4.7 (0.8-3.0); NEUTROPHILS 61 % (42.0-75.2); TOTAL CELLS COUNTED 100
[2017-05-02 06:30] LABS: ANISOCYTOSIS 2+; BURR CELLS 1+; PLATELET ESTIMATE NORMAL (NORMAL)
[2017-05-02 06:33] LABS: PROTHROMBIN TIME 55.1 SECONDS (9.7-12.8)
[2017-05-03] VITALS (10 sets, daily range): BP systolic 103–172; BP diastolic 44–71; PULSE 63–81; TEMP 97.6–98.7
[2017-05-03 05:33] LABS: HEMATOCRIT 27.9 % (42.0-52.0); HEMOGLOBIN 9.3 g/dl (13.5-18.0); MEAN CELL VOLUME 89 fl (80.0-100.0); MEAN CORPUSCULAR HEMOGLOBIN 30 pg (27.0-31.0); MEAN CORPUSCULAR HGB CONC 33 g/dl (33.0-37.0); MEAN PLATELET VOLUME 9.8 fl (7.4-10.4); PLATELET COUNT 160 K/mm3 (130-400); RED BLOOD COUNT 3.12 M/mm3 (4.20-5.60); REDCELL DISTRIBUTION WIDTH-CV 17.4 % (11.5-14.5); WHITE BLOOD COUNT 9.9 K/mm3 (4.8-10.8)
[2017-05-03 05:34] LABS: ADD PATHOLOGY DIFF REVIEW NO
[2017-05-03 05:39] LABS: CALCIUM 7.9 mg/dL (8.4-10.2); CREATININE, serum 0.88 mg/dL (0.66-1.25); POTASSIUM 4.5 mmol/L (3.4-5.0)
[2017-05-03 05:44] LABS: VANCOMYCIN TROUGH 9.6 ug/mL (7.00-20.00)
[2017-05-03 05:49] LABS: INR 4.3 (0.8-3.0)
[2017-05-03 05:50] LABS: PROTHROMBIN TIME 50.9 SECONDS (9.7-12.8)
[2017-05-03 05:55] LABS: ANISOCYTOSIS 2+; BAND 24 % (0-10); BURR CELLS 1+; NEUTROPHILS 57 % (42.0-75.2); PLATELET ESTIMATE NORMAL (NORMAL); TOTAL CELLS COUNTED 100
[2017-05-04 00:08] VITALS: BP 133/40; PULSE 68; TEMP 99.2
[2017-05-04 04:14] VITALS: BP 153/47; PULSE 62; TEMP 98.8
[2017-05-04 06:55] LABS: HEMATOCRIT 26.6 % (42.0-52.0); HEMOGLOBIN 8.9 g/dl (13.5-18.0); MEAN CELL VOLUME 89 fl (80.0-100.0); MEAN CORPUSCULAR HEMOGLOBIN 30 pg (27.0-31.0); MEAN CORPUSCULAR HGB CONC 34 g/dl (33.0-37.0); MEAN PLATELET VOLUME 9.7 fl (7.4-10.4); PLATELET COUNT 136 K/mm3 (130-400); REDCELL DISTRIBUTION WIDTH-CV 17.2 % (11.5-14.5); WHITE BLOOD COUNT 7.9 K/mm3 (4.8-10.8)
[2017-05-04 06:56] LABS: ADD PATHOLOGY DIFF REVIEW NO
[2017-05-04 07:06] LABS: INR 4.4 (0.8-3.0)
[2017-05-04 07:09] LABS: PROTHROMBIN TIME 52.2 SECONDS (9.7-12.8)
[2017-05-04 07:14] LABS: CALCIUM 7.7 mg/dL (8.4-10.2); CREATININE, serum 0.95 mg/dL (0.66-1.25)
[2017-05-04 07:15] LABS: POTASSIUM 3.6 mmol/L (3.4-5.0)
[2017-05-04 07:29] LABS: BAND 18 % (0-10); EOSINOPHIL 2 % (0-4); NEUTROPHILS 63 % (42.0-75.2); PLATELET ESTIMATE DECREASED (NORMAL); TOTAL CELLS COUNTED 100
[2017-05-04 07:30] LABS: ANISOCYTOSIS 1+; SPHEROCYTE 1+
[2017-05-04 08:14] VITALS: BP 132/42; PULSE 67; TEMP 98.5
[2017-05-04 12:14] VITALS: BP 135/49; PULSE 58; TEMP 98.1
[2017-05-04 17:08] VITALS: BP 129/103; PULSE 73; TEMP 97.9
[2017-05-04 19:48] VITALS: BP 175/45; PULSE 61; TEMP 98.2
[2017-05-05] VITALS (11 sets, daily range): BP systolic 146–170; BP diastolic 39–55; PULSE 51–107; TEMP 97.6–100.9
[2017-05-05 07:49] LABS: INR 2.8 (0.8-3.0); PROTHROMBIN TIME 31.8 SECONDS (9.7-12.8)
[2017-05-05 07:57] LABS: MEAN CELL VOLUME 89 fl (80.0-100.0); MEAN CORPUSCULAR HGB CONC 34 g/dl (33.0-37.0); MEAN PLATELET VOLUME 9.9 fl (7.4-10.4); PLATELET COUNT 137 K/mm3 (130-400); RED BLOOD COUNT 2.86 M/mm3 (4.20-5.60); REDCELL DISTRIBUTION WIDTH-CV 17.1 % (11.5-14.5); WHITE BLOOD COUNT 6.5 K/mm3 (4.8-10.8)
[2017-05-05 08:00] LABS: ADD PATHOLOGY DIFF REVIEW NO; HEMATOCRIT 25.4 % (42.0-52.0); HEMOGLOBIN 8.5 g/dl (13.5-18.0); MEAN CORPUSCULAR HEMOGLOBIN 30 pg (27.0-31.0)
[2017-05-05 08:10] LABS: CALCIUM 7.7 mg/dL (8.4-10.2); CREATININE, serum 0.93 mg/dL (0.66-1.25); POTASSIUM 3.2 mmol/L (3.4-5.0)
[2017-05-05 08:59] LABS: BAND 7 % (0-10); BASOPHIL 1 % (0-2); EOSINOPHIL 2 % (0-4); NEUTROPHILS 62 % (42.0-75.2); PLATELET ESTIMATE NORMAL (NORMAL); SCHISTOCYTES 1+; TOTAL CELLS COUNTED 100
[2017-05-05 13:56] LABS: MAGNESIUM 1.8 mg/dL (1.6-2.3)
[2017-05-05 15:48] LABS: RETIC % 1.3 % (0.5-3.52)
[2017-05-06 03:28] VITALS: BP 177/50; PULSE 64; TEMP 98.4
[2017-05-06 07:54] LABS: MEAN CELL VOLUME 87 fl (80.0-100.0); MEAN CORPUSCULAR HGB CONC 34 g/dl (33.0-37.0); MEAN PLATELET VOLUME 9.7 fl (7.4-10.4); PLATELET COUNT 154 K/mm3 (130-400); RED BLOOD COUNT 3.26 M/mm3 (4.20-5.60); REDCELL DISTRIBUTION WIDTH-CV 17.1 % (11.5-14.5)
[2017-05-06 07:58] LABS: HEMATOCRIT 28.4 % (42.0-52.0); HEMOGLOBIN 9.6 g/dl (13.5-18.0); MEAN CORPUSCULAR HEMOGLOBIN 29 pg (27.0-31.0)
[2017-05-06 07:59] LABS: ADD PATHOLOGY DIFF REVIEW NO
[2017-05-06 08:11] VITALS: BP 156/49; PULSE 61; TEMP 98.7
[2017-05-06 08:14] LABS: CALCIUM 7.7 mg/dL (8.4-10.2); CREATININE, serum 0.84 mg/dL (0.66-1.25); MAGNESIUM 1.6 mg/dL (1.6-2.3); POTASSIUM 3.9 mmol/L (3.4-5.0)
[2017-05-06 09:55] LABS: ANISOCYTOSIS 1+; BAND 4 % (0-10); EOSINOPHIL 1 % (0-4); MYELOCYTE 3 % (0-0); NEUTROPHILS 67 % (42.0-75.2); PLATELET ESTIMATE NORMAL (NORMAL); TOTAL CELLS COUNTED 100
[2017-05-06 11:30] VITALS: BP 121/42; PULSE 55; TEMP 98.2
[2017-05-06 11:31] LABS: MEAN CELL VOLUME 88 fl (80.0-100.0); MEAN CORPUSCULAR HGB CONC 34 g/dl (33.0-37.0); MEAN PLATELET VOLUME 9.3 fl (7.4-10.4); PLATELET COUNT 147 K/mm3 (130-400); RED BLOOD COUNT 3.23 M/mm3 (4.20-5.60); REDCELL DISTRIBUTION WIDTH-CV 17.1 % (11.5-14.5); WHITE BLOOD COUNT 7.2 K/mm3 (4.8-10.8)
[2017-05-06 11:33] LABS: HEMATOCRIT 28.3 % (42.0-52.0); HEMOGLOBIN 9.6 g/dl (13.5-18.0); MEAN CORPUSCULAR HEMOGLOBIN 30 pg (27.0-31.0)
[2017-05-06 15:28] VITALS: BP 153/43; PULSE 58; TEMP 97.5
[2017-05-06 20:54] VITALS: BP 169/48; PULSE 59; TEMP 98
[2017-05-07 00:35] VITALS: BP 171/56; PULSE 62; TEMP 97.8
[2017-05-07 04:42] VITALS: BP 167/47; PULSE 67; TEMP 97.9
[2017-05-07 07:09] LABS: BASO % 0.5 % (0.0-2.0); EOS # 0.3 (0.0-0.7); EOS % 3.9 % (0-4.0); GRAN # 5.4 (1.4-6.5); GRAN % 64.6 % (42.2-75.2); LYMPH # 1.7 (1.2-3.4); MEAN CELL VOLUME 87 fl (80.0-100.0); MEAN CORPUSCULAR HGB CONC 34 g/dl (33.0-37.0); MEAN PLATELET VOLUME 9.6 fl (7.4-10.4); MONO # 0.8 (0.1-0.6); MONO % 9.4 % (1.7-9.3); PLATELET COUNT 202 K/mm3 (130-400); RED BLOOD COUNT 3.39 M/mm3 (4.20-5.60); REDCELL DISTRIBUTION WIDTH-CV 17.2 % (11.5-14.5); WHITE BLOOD COUNT 8.3 K/mm3 (4.8-10.8)
[2017-05-07 07:16] LABS: INR 1.7 (0.8-3.0); PROTHROMBIN TIME 19.4 SECONDS (9.7-12.8)
[2017-05-07 07:21] LABS: HEMATOCRIT 29.4 % (42.0-52.0); HEMOGLOBIN 10.1 g/dl (13.5-18.0); MEAN CORPUSCULAR HEMOGLOBIN 30 pg (27.0-31.0)
[2017-05-07 07:27] LABS: CALCIUM 7.9 mg/dL (8.4-10.2); CREATININE, serum 0.79 mg/dL (0.66-1.25); MAGNESIUM 1.5 mg/dL (1.6-2.3); POTASSIUM 3.9 mmol/L (3.4-5.0)
[2017-05-07 07:34] VITALS: BP 149/46; PULSE 64; TEMP 100.1
[2017-05-07 12:15] VITALS: BP 145/51; PULSE 58
[2017-05-07 16:30] VITALS: BP 140/44; PULSE 61; TEMP 99.9
[2017-05-07 21:22] VITALS: BP 174/53; PULSE 64; TEMP 98.9
[2017-05-08] VITALS (7 sets, daily range): BP systolic 98–159; BP diastolic 39–75; PULSE 52–74; TEMP 97.9–99.8
[2017-05-09] VITALS (82 sets, daily range): BP systolic 81–137; BP diastolic 36–61; PULSE 52–95; TEMP 96.6–98.7; O2SAT 85–100
[2017-05-09 08:09] LABS: INR 1.9 (0.8-3.0); PROTHROMBIN TIME 21.9 SECONDS (9.7-12.8)
[2017-05-09 19:31] LABS: MEAN CELL VOLUME 89 fl (80.0-100.0); MEAN CORPUSCULAR HGB CONC 34 g/dl (33.0-37.0); MEAN PLATELET VOLUME 9.3 fl (7.4-10.4); PLATELET COUNT 195 K/mm3 (130-400); RED BLOOD COUNT 2.33 M/mm3 (4.20-5.60); WHITE BLOOD COUNT 10.7 K/mm3 (4.8-10.8)
[2017-05-09 19:47] LABS: HEMATOCRIT 20.7 % (42.0-52.0); MEAN CORPUSCULAR HEMOGLOBIN 30 pg (27.0-31.0)
[2017-05-09 19:54] LABS: ALLEN TEST YES; ALLENS TEST RESULT PASS; ARTERIAL BLD GAS O2 SATURATION 97.3 % (92-100); ARTERIAL BLD GAS TCO2 CT 25.1; ARTERIAL BLOOD GAS BASE EXCESS 0.2 (-2-2); ARTERIAL BLOOD GAS HCO3 24.1 meq/L (22-26); ARTERIAL BLOOD GAS PHT 7.45 C (7.35-7.45); ARTERIAL BLOOD GAS PO2 120.8 mmHg (80-100); ARTERIAL BLOOD GAS PO2T 120.8 (80-100); ARTERIAL BLOOD GAS pH 7.45 (7.35-7.45); ATS? YES; OXYHEMOGLOBIN 96.1 %
[2017-05-09 19:57] LABS: CALCIUM 7.5 mg/dL (8.4-10.2); CREATININE, serum 1.29 mg/dL (0.66-1.25); POTASSIUM 4.4 mmol/L (3.4-5.0)
[2017-05-09 20:25] LABS: INR 2.2 (0.8-3.0); PROTHROMBIN TIME 24.6 SECONDS (9.7-12.8)
[2017-05-09 20:29] LABS: ANISOCYTOSIS 2+; BAND 4 % (0-10); EOSINOPHIL 1 % (0-4); NEUTROPHILS 79 % (42.0-75.2); PLATELET ESTIMATE NORMAL (NORMAL); TOTAL CELLS COUNTED 100
[2017-05-09 20:30] LABS: ACANTHOCYTES 3+; BURR CELLS 1+; HYPOCHROMIA 1+; POIKILOCYTOSIS 3+
[2017-05-09 20:31] LABS: ADD PATHOLOGY DIFF REVIEW YES
[2017-05-09 21:58] LABS: MAGNESIUM 1.6 mg/dL (1.6-2.3)
[2017-05-09 22:17] LABS: ARTERIAL BLD GAS O2 SATURATION 98.9 % (92-100); ARTERIAL BLD GAS TCO2 CT 19.7; ARTERIAL BLOOD GAS HCO3 18.7 meq/L (22-26); ARTERIAL BLOOD GAS PHT 7.36 C (7.35-7.45); ARTERIAL BLOOD GAS pH 7.36 (7.35-7.45)
[2017-05-09 22:20] LABS: ALLEN TEST NO; ARTERIAL BLOOD GAS PO2 355.9 mmHg (80-100); ARTERIAL BLOOD GAS PO2T 355.9 (80-100); ATS? NO
[2017-05-10] VITALS (223 sets, daily range): BP systolic 66–147; BP diastolic 30–52; PULSE 53–99; TEMP 96.3–97.3; O2SAT 86–100
[2017-05-10 00:18] LABS: VENOUS BLOOD GAS SAO2 51.9 % (60-80); VENOUS BLOOD GAS SITE CENTRAL LINE
[2017-05-10 00:55] LABS: HEMATOCRIT 22.5 % (42.0-52.0); HEMOGLOBIN 7.7 g/dl (13.5-18.0)
[2017-05-10 05:08] LABS: MEAN CELL VOLUME 88 fl (80.0-100.0); MEAN CORPUSCULAR HGB CONC 34 g/dl (33.0-37.0); MEAN PLATELET VOLUME 9.4 fl (7.4-10.4); PLATELET COUNT 199 K/mm3 (130-400); RED BLOOD COUNT 3.41 M/mm3 (4.20-5.60); REDCELL DISTRIBUTION WIDTH-CV 15.9 % (11.5-14.5); WHITE BLOOD COUNT 13.7 K/mm3 (4.8-10.8)
[2017-05-10 05:10] LABS: ADD PATHOLOGY DIFF REVIEW NO; HEMATOCRIT 30.1 % (42.0-52.0); HEMOGLOBIN 10.1 g/dl (13.5-18.0); MEAN CORPUSCULAR HEMOGLOBIN 30 pg (27.0-31.0)
[2017-05-10 05:12] LABS: ADJUSTED CALCIUM 9.4 mg/dL (8.4-10.2); ALBUMIN 2.3 gm/dL (3.5-5.0); BILIRUBIN,TOTAL 2.6 mg/dL (0.0-1.0); CREATININE, serum 1.57 mg/dL (0.66-1.25); MAGNESIUM 1.6 mg/dL (1.6-2.3); POTASSIUM 4.8 mmol/L (3.4-5.0); TOTAL PROTEIN 5.2 gm/dL (6.4-8.2)
[2017-05-10 05:14] LABS: INR 1.7 (0.8-3.0); PROTHROMBIN TIME 19.4 SECONDS (9.7-12.8)
[2017-05-10 05:15] LABS: ARTERIAL BLD GAS O2 SATURATION 95.9 % (92-100); ARTERIAL BLOOD GAS BASE EXCESS -7.4 (-2-2); ARTERIAL BLOOD GAS HCO3 17.1 meq/L (22-26); ARTERIAL BLOOD GAS PHT 7.36 C (7.35-7.45); ARTERIAL BLOOD GAS PO2 90.9 mmHg (80-100); ARTERIAL BLOOD GAS PO2T 90.9 (80-100); ARTERIAL BLOOD GAS pH 7.36 (7.35-7.45); OXYHEMOGLOBIN 94.7 %
[2017-05-10 05:17] LABS: ATS? NO
[2017-05-10 05:20] LABS: BAND 17 % (0-10); NEUTROPHILS 59 % (42.0-75.2); PLATELET ESTIMATE NORMAL (NORMAL); TOTAL CELLS COUNTED 100
[2017-05-10 05:21] LABS: BURR CELLS 3+
[2017-05-10 08:33] LABS: PATHOLOGY DIFF REVIEW OK
[2017-05-10 11:41] LABS: HEMATOCRIT 23.5 % (42.0-52.0); HEMOGLOBIN 7.9 g/dl (13.5-18.0)
== END 2017-05-10 13:40 | disposition expired | DRG 871 ==
LOC: COL.ER 09:48 → MEDICAL 11:21 → ICU 11:51 → MEDICAL 05-02 12:25 → ICU 05-09 20:16
PROVIDERS: Emergency Medicine; Family Medicine; Internal Medicine; Internal Medicine Cardiovascular Disease; Internal Medicine Pulmonary Disease; Nurse Practitioner Family; Physician Assistant; Radiology Diagnostic Radiology
PROC: B41F1ZZ Fluoroscopy of Right Lower Extremity Arteries using Low Osmolar Contrast (ICD-10-PCS; principal; 2017-05-09)
PROC: 0BH18EZ Insertion of Endotracheal Airway into Trachea, Via Natural or Artificial Opening Endoscopic (ICD-10-PCS; 2017-05-09)
PROC: 5A1935Z Respiratory Ventilation, Less than 24 Consecutive Hours (ICD-10-PCS; 2017-05-09)
PROC: B41C1ZZ Fluoroscopy of Pelvic Arteries using Low Osmolar Contrast (ICD-10-PCS; 2017-05-09)
PROC: B41B1ZZ Fluoroscopy of Other Intra-Abdominal Arteries using Low Osmolar Contrast (ICD-10-PCS; 2017-05-09)
DX: A41.59 Other Gram-negative sepsis (principal); K66.1 Hemoperitoneum; N17.0 Acute kidney failure with tubular necrosis; I21.4 Non-ST elevation (NSTEMI) myocardial infarction; Z66 Do not resuscitate; E87.1 Hypo-osmolality and hyponatremia; I13.0 Hypertensive heart and chronic kidney disease with heart failure and stage 1 through stage 4 chronic kidney disease, or unspecified chronic kidney disease; N41.0 Acute prostatitis; M86.571 Other chronic hematogenous osteomyelitis, right ankle and foot; L97.419 Non-pressure chronic ulcer of right heel and midfoot with unspecified severity; D62 Acute posthemorrhagic anemia; I50.22 Chronic systolic (congestive) heart failure; E11.69 Type 2 diabetes mellitus with other specified complication; B96.5 Pseudomonas (aeruginosa) (mallei) (pseudomallei) as the cause of diseases classified elsewhere; E11.22 Type 2 diabetes mellitus with diabetic chronic kidney disease; N18.9 Chronic kidney disease, unspecified; I25.10 Atherosclerotic heart disease of native coronary artery without angina pectoris; I77.1 Stricture of artery; Z79.4 Long term (current) use of insulin; Z95.2 Presence of prosthetic heart valve; Z95.5 Presence of coronary angioplasty implant and graft; Z87.891 Personal history of nicotine dependence; E11.621 Type 2 diabetes mellitus with foot ulcer; E87.6 Hypokalemia; R57.1 Hypovolemic shock
CPT/HCPCS: 99223-AI; 99232-AI; 99233-AI; 99239; A4315; A9585; C1725; C1751; C1760; C1769; C1887; C1894; C9113; J0330; J0696; J1200; J1265; J1610; J1644; J1815; J1956; J2250; J2405; J2543; J2704; J3010; J3370; J3430; J3475; J3480; J7030; J7040; J7050; J7060; J7120; P9016; Q9967